=== PATIENT | female | born 1985 | race African-American/Black ===

== ENCOUNTER 2017-08-14 00:15 | Emergency (ER) | payer BC ==
[~2017-08-14] VITALS: Ht 167.6 cm; Wt 136.1 kg
[~2017-08-14 00:15] MED LIST: FLEXERIL PO; IRON SUPPLEMEN325 MG PO; NAPROSYN500 MG PO; NOHOMEMEDICATIONS; SLIMQUICK; TRAMADOL 50 MG50 MG PO
== END 2017-08-14 01:11 | disposition home or self-care (01) ==
LOC: ER 00:15
DX: J02.9 Acute pharyngitis, unspecified (principal); Z98.890 Other specified postprocedural states

== ENCOUNTER 2017-09-15 12:39 | Emergency (ER) | payer BC ==
[~2017-09-15] VITALS: Ht 162.6 cm; Wt 127.0 kg
--- NOTE | ~2017-09-15 | EKG ---
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
[2017-09-15 13:37] LABS: ABSOLUTE NEUTROPHILS 4.2 thou/uL (1.4-8.2); BASOPHILS 1.2 % (0.0-2.0); EOSINOPHILS 0.6 % (0.0-3.0); HEMOGLOBIN 12.9 gm/dL (12.0-15.0); LYMPHOCYTES 36.6 % (24.0-44.0); MCH 27.1 pg (26.0-34.0); MCHC 33.1 g/dL (28.0-37.0); MCV 81.9 fL (80.0-100.0); MONOCYTES 6.8 % (1.0-8.0); PLATELET COUNT 314 thou/uL (150-400); POLYS 54.8 % (36.0-66.0); RBC 4.76 mil/uL (4.20-5.00); RDW 13.8 % (10.5-14.5); WBC 7.7 thou/uL (4.0-11.0)
[2017-09-15 13:50] LABS: CALCIUM 9.4 mg/dL (8.5-10.1); CREATININE 0.8 mg/dL (0.6-1.0); POTASSIUM 3.9 mmol/L (3.5-5.1)
[2017-09-15 13:51] LABS: URINE BILIRUBIN NEGATIVE (Negative); URINE BLOOD NEGATIVE (Negative); URINE CLARITY CLEAR; URINE COLOR YELLOW; URINE GLUCOSE-RANDOM* NEGATIVE (Negative); URINE KETONES NEGATIVE (Negative); URINE LEUKOCYTES TRACE (Negative); URINE NITRITE NEGATIVE (Negative); URINE PROTEIN (DIPSTICK) NEGATIVE (Negative); URINE SPECIFIC GRAVITY >= 1.030 (1.005-1.035); URINE UROBILINOGEN 0.2 E.U./dl (0.2-1.0)
[2017-09-15 13:56] LABS: ALBUMIN 3.6 g/dL (3.4-5.0); TOTAL BILIRUBIN 0.2 mg/dL (<0.1-1.0); TOTAL PROTEIN 8.3 g/dL (6.4-8.2)
[2017-09-16] MEDS ORDERED: ATIVAN0.5 MG PO (09:50)
== END 2017-09-15 14:25 | disposition home or self-care (01) ==
LOC: ER 12:39
PROVIDERS: Nurse Practitioner Family
DX: R42 Dizziness and giddiness (principal)

== ENCOUNTER 2017-09-16 09:25 | Emergency (ER) | payer BC ==
[~2017-09-16] VITALS: Ht 162.6 cm; Wt 127.0 kg
--- NOTE | ~2017-09-16 | EKG ---
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
[2017-09-16] MEDS ORDERED: ATIVAN0.5 MG PO (09:50)
== END 2017-09-16 09:57 | disposition home or self-care (01) ==
LOC: ER 09:25
DX: R20.2 Paresthesia of skin (principal); F41.9 Anxiety disorder, unspecified